=== PATIENT | male | born 1955 | race Caucasian/White ===

== ENCOUNTER 2019-12-18 22:01 | Emergency (ER) | payer BC ==
[~2019-12-18] VITALS: Ht 182.9 cm; Wt 85.7 kg
[2019-12-18] MEDS ORDERED: ESCITALOPRA5 MG/5 ML PO (22:41)
[2019-12-18] MEDS ORDERED: WELLBUTRIN XL150 MG PO (22:41)
[2019-12-18] MEDS ORDERED: LOMOTIL 2.5-0.01 TAB PO (22:42)
[2019-12-18] MEDS ORDERED: PROAIR HFA8.5 GM INH (22:42)
[2019-12-18] MEDS ORDERED: VENTOLIN HFA 1818 GM INH (22:42)
[2019-12-18] MEDS ORDERED: ANORO ELLIPTA1 EACH (22:43)
[2019-12-18] MEDS ORDERED: LIPITOR 20 MG T20 M1 PO (22:43)
[2019-12-18] MEDS ORDERED: COMBIVENT INH (22:43)
[2019-12-18] MEDS ORDERED: NORCO 10-325 T1 EACH PO (22:44)
[2019-12-18 23:06] LABS: ABSOLUTE BASOPHILS 0.1 thou/uL (0.0-0.2); ABSOLUTE EOSINOPHILS 0.1 thou/uL (0.0-0.7); ABSOLUTE LYMPHOCYTES 0.7 thou/uL (0.8-5.3); ABSOLUTE MONOCYTES 0.5 thou/uL (0.0-1.2); ABSOLUTE NEUTROPHILS 5.2 thou/uL (1.6-8.1); BASOPHILS 0.8 %; EOSINOPHILS 0.9 %; HEMATOCRIT 32.4 % (42.0-52.0); HEMOGLOBIN 10.2 gm/dL (14.0-18.0); LYMPHOCYTES 10.2 %; MCH 22.8 pg (26.0-34.0); MCHC 31.6 g/dL (28.0-37.0); MONOCYTES 7.5 %; MPV 7.3 fl. (7.2-11.1); NUCLEATED RBCS 0 /100WBC; PLATELET COUNT* 333 thou/uL (150-400); POLYS 80.6 %; RDW-CV 19.9 % (10.5-14.5); WBC 6.5 thou/uL (4.0-11.0)
[2019-12-18 23:15] LABS: CALCIUM 8.2 mg/dL (8.5-10.1); CREATININE 1.2 mg/dL (0.6-1.3); POTASSIUM 3.2 mmol/L (3.5-5.1)
[2019-12-18 23:18] LABS: PROTIME 10.6 Seconds (9.20-11.50)
[2019-12-18 23:25] LABS: ALBUMIN 2.6 g/dL (3.4-5.0); TOTAL BILIRUBIN 0.5 mg/dL (<0.1-1.0); TOTAL PROTEIN 6.8 g/dL (6.4-8.2)
[2019-12-18 23:54] LABS: ANISOCYTOSIS 2+; OVALOCYTES Occasional; PLATELET ESTIMATE ADEQUATE
[2019-12-18 23:55] LABS: HYPOCHROMASIA 1+; MICROCYTES 1+
[2019-12-19] MEDS ORDERED: HYDROCODON-ACE1 EAC8 PO (02:37)
[2019-12-19 02:59] VITALS: BP 127/75
--- NOTE | 2019-12-19 12:51 | EKG ---
[place] [address] ELECTROCARDIOGRAM REPORT Name: GOLDBERGGIORGIO [id number] Admission: 12/18/19 Attend Phys: Discharge: 12/19/19 Date of : 59 Report #: [id number] THIS REPORT FOR: //name// [facility] ED Test Date: 2019-12-18 Test Time: 23:11:35 Pat Name: GIORGIO GOLDBERG Department: Room: Gender: M Concrete Batcher: PERRY : 1955 Requested By: April Heaton Order Number: [id number] MD: Sharif Juares Measurements Intervals [place] Rate: 89 P: 60 [place]: 134 QRS: 28 QRSD: 96 T: 49 QT: 375 QTc: 457 Interpretive Statements Sinus rhythm low voltage Inferior infarct, old No previous ECG available for comparison Electronically Signed On 12-19-2019 12:50:31 PROTOTYPE ENGINEER by Sharif Juraes [email or web address] <ELECTRONICALLY SIGNED> By: Sharif Juares MD, [facility] 12/19/19 1250 2311 2311 Sharif Juares MD, FACC /EPI
== END 2019-12-19 03:01 | disposition home or self-care (01) ==
LOC: M.ERS 22:01
PROVIDERS: Emergency Medicine
DX: R06.00 Dyspnea, unspecified (principal); J44.9 Chronic obstructive pulmonary disease, unspecified; Z88.1 Allergy status to other antibiotic agents; Z88.2 Allergy status to sulfonamides; Z87.891 Personal history of nicotine dependence; Z90.49 Acquired absence of other specified parts of digestive tract; Z85.038 Personal history of other malignant neoplasm of large intestine